=== PATIENT | female | born 1965 | race Caucasian/White ===

== ENCOUNTER 2017-07-14 08:13 | Emergency (ER) | payer MEDICAID ==
[~2017-07-14] VITALS: Ht 152.4 cm; Wt 56.7 kg
--- NOTE | 2017-07-14 09:00 | Emergency Room Report ---
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 N Clinical Suspician of Infection? N Mental Status: 1 - Regular (Normal Baseline) Sepsis Risk:Low Sepsis Risk Have you (or family members/close friends) recently traveled outside the [place]? N If Yes, where/when: Have you had exposure to infectious disease within the past month? N TB? Other? Specify: Source patient, RN notes reviewed Exam Limitations no limitations Comment Pt comes to the ED with a cough for the past month or longer. Productive cough with clear mucous. Also has pain in the left ear and some decreased hearing. Smokes 1 ppd and occasionally drinks ETOH. Low grade fever at this time Cardiac Chest Pain Chest pain indicative of cardiac No ALLERGIES Coded Allergies: Penicillins (07/14/17) Home Medications Reported Medications No Known Home Medications History Medical History General CAD? No Angina: No [place]: No Hypertension? No Hyperlipidemia? No CHF? No DVT? No PE? No COPD? No Asthma? No Anemia? No GERD? No Gastric ulcers? No GI Bleed? No Hernia? No Thyroid Problems? No Hypothyroidism? No CVA? No Seizures? No Diabetes? No Renal Insuffiency? No End Stage Renal Disease? No UTI? No Stones? No BPH? No GB Disease: No Nephritic Syndrome? No Asplenia? No Hepatitis? No Sickle Cell Disease? No Arthritis? No Migraines? No Cataracts? No Glaucoma? No MRSA? No HIV? No TB? No Anxiety? No Depression? No Cancer? No Site: N More? 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 Respiratory see HPI Physical Exam Vital Signs Vital Signs Date Time Temp Pulse Resp B/P Pulse O2 O2 Flow FiO2 Ox Delivery Rate 07/14 0943 72 18 155/92 98 07/14 0914 62 18 135/88 98 07/14 0820 99.0 74 18 138/75 98 General Appearance normal appearance, WD/WN, no apparent distress Ear, Nose, Throat abnormal TM (L) Respiratory Status No: respiratory distress. Lung Sounds bilateral: rhonchi. 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 No Results/Orders Orders Procedure Date/time Status CHEST(2 VIEWS-NOT PORTABLE) 07/14 0857 Active XRAY/CT/US XRAY/CT/US XRAY chest XR interpretation by reviewed by me Xray Results Bronchitic changes but no acute infiltrate seen by me Departure Departure Time of Disposition 935 Disposition DC Home or Self Care(routine) Clinical Impression Primary Impression: Acute bronchitis Qualifiers: Bronchitis organism: unspecified organism Qualified Code: J20.9 - Acute bronchitis, unspecified Secondary Impressions: Left otitis media Qualifiers: Otitis media type: unspecified Chronicity: unspecified Qualified Code: H66.92 - Otitis media, unspecified, left ear Condition STABLE Patient Instructions Acute Bronchitis, DI for Acute Bronchitis, DI for Otitis Media (Middle Ear Infection)-Child, Ear Infections (Alternative Therapy), Middle Ear Infection Additional Instructions Advised to stop smoking. Use medicines as directed. Follow up with PCP in 1 week to recheck or return to the ED with any worsening symptoms Discharge Counseling Counseled pt/family regarding diagnosis, test results, medications/RX, home care, follow up needs Prescriptions Current Visit Scripts Levofloxacin (Levaquin 500MG) 500 MG PO DAILY #10 TAB Guaifenesin/Dextromethorphan (Robitussin Cough-Chest Dm Liq) 5 ML PO Q4H PRN #240 ML Montelukast Sodium (Singulair) 10 MG PO QHS #30 TAB ED Critical Care Critical Care No If Critical Care minutes are documented, the time involved in the performance of seperately reportable procedures was not counted toward critical care time documented. I directly delivered medical care to this critically ill and/or injured patient. Timely evaluation and treatment was necessary to address the significant organ system(s) dysfunction present in this patient. at 0944
--- NOTE | 2017-07-14 09:00 | Emergency Room Report ---
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 N Clinical Suspician of Infection? N Mental Status: 1 - Regular (Normal Baseline) Sepsis Risk:Low Sepsis Risk Have you (or family members/close friends) recently traveled outside the [place]? N If Yes, where/when: Have you had exposure to infectious disease within the past month? N TB? Other? Specify: Source patient, RN notes reviewed Exam Limitations no limitations Comment Pt comes to the ED with a cough for the past month or longer. Productive cough with clear mucous. Also has pain in the left ear and some decreased hearing. Smokes 1 ppd and occasionally drinks ETOH. Low grade fever at this time Cardiac Chest Pain Chest pain indicative of cardiac No ALLERGIES Coded Allergies: Penicillins (07/14/17) Home Medications Reported Medications No Known Home Medications History Medical History General CAD? No Angina: No [place]: No Hypertension? No Hyperlipidemia? No CHF? No DVT? No PE? No COPD? No Asthma? No Anemia? No GERD? No Gastric ulcers? No GI Bleed? No Hernia? No Thyroid Problems? No Hypothyroidism? No CVA? No Seizures? No Diabetes? No Renal Insuffiency? No End Stage Renal Disease? No UTI? No Stones? No BPH? No GB Disease: No Nephritic Syndrome? No Asplenia? No Hepatitis? No Sickle Cell Disease? No Arthritis? No Migraines? No Cataracts? No Glaucoma? No MRSA? No HIV? No TB? No Anxiety? No Depression? No Cancer? No Site: N More? 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 Respiratory see HPI Physical Exam Vital Signs Vital Signs Date Time Temp Pulse Resp B/P Pulse O2 O2 Flow FiO2 Ox Delivery Rate 07/14 0943 72 18 155/92 98 07/14 0914 62 18 135/88 98 07/14 0820 99.0 74 18 138/75 98 General Appearance normal appearance, WD/WN, no apparent distress Ear, Nose, Throat abnormal TM (L) Respiratory Status No: respiratory distress. Lung Sounds bilateral: rhonchi. 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 No Results/Orders Orders Procedure Date/time Status CHEST(2 VIEWS-NOT PORTABLE) 07/14 0857 Active XRAY/CT/US XRAY/CT/US XRAY chest XR interpretation by reviewed by me Xray Results Bronchitic changes but no acute infiltrate seen by me Departure Departure Time of Disposition 935 Disposition DC Home or Self Care(routine) Clinical Impression Primary Impression: Acute bronchitis Qualifiers: Bronchitis organism: unspecified organism Qualified Code: J20.9 - Acute bronchitis, unspecified Secondary Impressions: Left otitis media Qualifiers: Otitis media type: unspecified Chronicity: unspecified Qualified Code: H66.92 - Otitis media, unspecified, left ear Condition STABLE Patient Instructions Acute Bronchitis, DI for Acute Bronchitis, DI for Otitis Media (Middle Ear Infection)-Child, Ear Infections (Alternative Therapy), Middle Ear Infection Additional Instructions Advised to stop smoking. Use medicines as directed. Follow up with PCP in 1 week to recheck or return to the ED with any worsening symptoms Discharge Counseling Counseled pt/family regarding diagnosis, test results, medications/RX, home care, follow up needs Prescriptions Current Visit Scripts Levofloxacin (Levaquin 500MG) 500 MG PO DAILY #10 TAB Guaifenesin/Dextromethorphan (Robitussin Cough-Chest Dm Liq) 5 ML PO Q4H PRN #240 ML Montelukast Sodium (Singulair) 10 MG PO QHS #30 TAB ED Critical Care Critical Care No If Critical Care minutes are documented, the time involved in the performance of seperately reportable procedures was not counted toward critical care time documented. I directly delivered medical care to this critically ill and/or injured patient. Timely evaluation and treatment was necessary to address the significant organ system(s) dysfunction present in this patient. at 0944
[2017-07-14 09:57] VITALS: BP 153/85
--- NOTE | 2017-07-14 10:41 | RADIOLOGY REPORT PS360 ---
CHEST(2 VIEWS-NOT PORTABLE) HISTORY: cough for a month ORDERING PHYSICIAN: Vicky Thomas MD PATIENT AGE: 52 years COMPARISON: None available FINDINGS: The cardiomediastinal silhouette and pulmonary vascularity are within normal limits. The lungs are clear without infiltrates, suspicious nodules, or pleural effusions. No acute bony abnormalities. IMPRESSION: Negative chest, no acute finding
== END 2017-07-14 10:00 | disposition home or self-care (01) ==
LOC: ER 08:13
DX: J20.9 Acute bronchitis, unspecified (principal); H66.92 Otitis media, unspecified, left ear; F17.210 Nicotine dependence, cigarettes, uncomplicated

== ENCOUNTER → 2017-10-08 | Outpatient (CLI) | payer MEDICAID ==
[~2017-10-08] MED LIST: LEVAQUIN500 MG PO; ROBITUSSIN COU237 M1 PO; SINGULAIR10 MG PO
[2017-10-08 12:11] LABS: HEMOGLOBIN 13.7 g/dL (12.2-16.2); LYMPH # 2.7 K/mm3 (0.7-4.5); LYMPH % 28.2 % (10-50.0)
[2017-10-08 14:45] LABS: BUN 15 mg/dL (7-18)
[2017-10-08 14:46] LABS: GFR (ESTIMATED) 76 ML/MIN (59-)
[2017-10-09 07:39] LABS: HBsAg Screen Negative (Negative); Hep A Ab, IgM Negative (Negative); Hep B Core Ab, IgM Negative (Negative); Hep C Virus Ab <0.1 (0.0-0.9)
== END ==
LOC: LAB 11:54
PROVIDERS: Nurse Practitioner Family
DX: Z00.00 Encounter for general adult medical examination without abnormal findings (principal)